=== PATIENT | female | born 1965 ===

== ENCOUNTER 2018-09-02 14:03 | Emergency (ER) | payer MEDICAID ==
[2018-09-02 14:21] VITALS: BP 135/67; PULSE 74; RESP 18; TEMP 97.7; O2SAT 99
--- NOTE | 2018-09-02 15:03 | ED PDOC ---
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 Denies any trauma, falls, or injuries. Right hand dominant PMD: Joby Segovia Past Medical History Reviewed: Historical Data, Nursing Documentation, Vital Signs Vital Signs: Last Vital Signs Temp 97.7 F 09/02/18 14:18 Pulse 74 09/02/18 14:18 Resp 18 09/02/18 14:18 BP 135/67 09/02/18 14:18 Pulse Ox 99 09/02/18 14:18 - Family History Family History: States: Unknown Family Hx - Home Medications Home Medications: Ambulatory Orders Medication Instructions Recorded Diclofenac Sodium [Voltaren] 1 gm TP TID #100 gel..gram. 09/02/18 RX: Diclofenac Sodium 50 mg PO BID #30 tablet. 09/02/18 - Allergies Allergies/Adverse Reactions: Allergies Allergy/AdvReac Type Severity Reaction Status Date / Time No Known Allergies Allergy Verified 09/02/18 14:18 Review of Systems ROS Statement: Except As Marked, All Systems Reviewed And Found Negative Musculoskeletal: Positive for: Arm Pain (right, from shoulder to elbow) Physical Exam - Reviewed Nursing Documentation Reviewed: Yes Vital Signs Reviewed: Yes - Physical Exam Appears: Positive for: No Acute Distress Skin: Positive for: Normal Color, Warm Cardiovascular/Chest: Positive for: Regular Rate, Rhythm Respiratory: Positive for: Normal Breath Sounds. Negative for: Respiratory Distress Extremity: Positive for: Other (Hawking's and Scarf's signs positive). Negative for: Normal ROM (decreased elevation, abduction, and adduction secondary to pain of right UE) Neurologic/Psych: Positive for: Alert, Oriented (x3) - ECG O2 Sat by Pulse Oximetry: 99 (RA) Pulse Ox Interpretation: Normal Medical Decision Making Medical Decision Making: Time: 1456 Initial Impression: most likely overuse injury Initial Plan: --Decadron 10mg IM --Toradol 60mg IM --Tylenol 650mg PO --Right shoulder XR 1538 Shoulder XR FINDINGS: BONES: Normal. No fracture. JOINTS: Normal. Glenohumeral and acromioclavicular joints preserved. No significant osteoarthritis. SOFT TISSUES: Small calcifications adjacent to the greater tuberosity likely secondary to calcific OTHER FINDINGS: None. IMPRESSION: Tendinitis. No evidence of acute displaced fracture nor dislocation. Findings suggest mild calcific tendinitis. 1600 Results discussed with patient using irrigation supervisor. Patient to be placed in sling, given scripts for pain medication, and advised to follow up with her PMD. ----- Scribe Attestation: Documented by Kiya Barlow, acting as a scribe for Amadou Weaver PA-C. Provider Scribe Attestation: All medical record entries made by the Scribe were at my direction and personally dictated by me. I have reviewed the chart and agree that the record accurately reflects my personal performance of the history, physical exam, medical decision making, and the department course for this patient. I have also personally directed, reviewed, and agree with the discharge instructions and disposition. Disposition - Clinical Impression Clinical Impression: Calcific shoulder tendinitis, Chronic shoulder pain Doctor Will See Patient In The: Office Counseled Patient/Family Regarding: Studies Performed, Diagnosis, Need For Followup, Rx Given - Disposition Referrals: [facility] at [place] [Outside] Disposition: Routine/Home Disposition Time: 16:21 Condition: STABLE Additional Instructions: Follow up with PCP Ortho clinic referral also provided Prescriptions: RX: Diclofenac Sodium 50 mg PO BID #30 tablet. Diclofenac Sodium [Voltaren] 1 gm TP TID #100 gel..gram. Instructions: Tendonitis, Tendonitis (DC) Forms: [employer] (Bel[place]ian), [employer] [place] (Sinhala), [facility] ED School/Work Excuse Print Language: SAMI
--- NOTE | 2018-09-02 15:07 | ED PDOC ---
Upper Extremity Pain/Injury Time Seen by Provider: 09/02/18 14:57 Chief Complaint (Nursing): Upper Extremity Problem/Injury Past Medical History Vital Signs: Last Vital Signs Temp 97.7 F 09/02/18 14:18 Pulse 74 09/02/18 14:18 Resp 18 09/02/18 14:18 BP 135/67 09/02/18 14:18 Pulse Ox 99 09/02/18 14:18 - Allergies Allergies/Adverse Reactions: Allergies Allergy/AdvReac Type Severity Reaction Status Date / Time No Known Allergies Allergy Verified 09/02/18 14:18 - ECG O2 Sat by Pulse Oximetry: 99 Disposition - Disposition
--- NOTE | 2018-09-02 15:48 | RAD ---
Date of service: 09/02/2018 PROCEDURE: Radiographs of the Right Shoulder HISTORY: r/o fx COMPARISON: No prior. FINDINGS: BONES: Normal. No fracture. JOINTS: Normal. Glenohumeral and acromioclavicular joints preserved. No significant osteoarthritis. SOFT TISSUES: Small calcifications adjacent to the greater tuberosity likely secondary to calcific OTHER FINDINGS: None. IMPRESSION: Tendinitis. No evidence of acute displaced fracture nor dislocation. Findings suggest mild calcific tendinitis.
== END 2018-09-02 16:30 | disposition home or self-care (01) ==
LOC: H.ER 14:03
DX: M25.511 Pain in right shoulder (principal); M75.31 Calcific tendinitis of right shoulder
CPT/HCPCS: 73030; 96372; 99282; J1100; J1885

== ENCOUNTER 2018-09-13 15:07 | Emergency (ER) | payer MEDICAID ==
[2018-09-13 15:15] VITALS: TEMP 97.7; O2SAT 99
--- NOTE | 2018-09-13 16:05 | ED PDOC ---
Upper Extremity Pain/Injury Time Seen by Provider: 09/13/18 15:14 Chief Complaint (Nursing): Upper Extremity Problem/Injury Chief Complaint (Provider): Upper Extremity Problem/Injury History Per: Patient History/Exam Limitations: no limitations Onset/Duration Of Symptoms: Days (x4) Current Symptoms Are (Timing): Still Present Additional Complaint(s): Patient is a 52 y/o female with a PMHx of right shoulder calcific tendonitis who presents to the ED for evaluation of recurrent right shoulder pain for the past four days. Patient was seen in the ED on 09/02/2018 for similar symptoms which was when she was diagnosed with right shoulder calcific tendonitis. Patient took Toradol, Decadron, and Tyenol with temporary improvement in pain prior to the past four days. Patient reports significant right shoulder and arm pain as well as difficulty elevating arm past shoulder. Patient also claims to have numbness in her right hand. Patient denies fever, chills, night sweats, or recent trauma to arm. Patient states she took Diclofenac last evening with minimal improvement. 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 09/02/18 Diclofenac Sodium [Voltaren] 1 gm TP TID #100 gel..gram. 09/02/18 - Allergies Allergies/Adverse Reactions: Allergies Allergy/AdvReac Type Severity Reaction Status Date / Time No Known Allergies Allergy Verified 09/13/18 15:13 Review of Systems ROS Statement: Except As Marked, All Systems Reviewed And Found Negative Constitutional: Negative for: Fever, Chills, Sweats, Weakness Musculoskeletal: Positive for: Shoulder Pain (right), Arm Pain (right) Neurological: Positive for: Numbness (in right hand) Physical Exam - Reviewed Nursing Documentation Reviewed: Yes Vital Signs Reviewed: Yes - Physical Exam Appears: Positive for: Uncomfortable Head Exam: Positive for: ATRAUMATIC, NORMAL INSPECTION, NORMOCEPHALIC Pulses-Radial (R): 2+ Extremity: Positive for: Capillary Refill (less than two seconds), Other (normal flexion and extension of right wrist). Negative for: Normal ROM (decreased ROM with flexion and abduction of right shoulder as well as decreased ROM and extension of right elbow), Deformity (ecchymosis, erythema, or swelling) Neurologic/Psych: Positive for: Alert, Oriented - ECG O2 Sat by Pulse Oximetry: 99 (RA) Pulse Ox Interpretation: Normal Medical Decision Making Medical Decision Making: Time: 1551 Plan: Decadron Inj 10 mg IM Flexeril 10 mg PO Toradol 30 mg IM Tylenol 650 mg PO Reevaluation Referral to Orthopedics Scribe Attestation: Documented by Jesus Chakraborty, acting as a scribe for Jazmín CANSECO. Provider Scribe Attestation: All medical record entries made by the Scribe were at my direction and personally dictated by me. I have reviewed the chart and agree that the record accurately reflects my personal performance of the history, physical exam, medical decision making, and the department course for this patient. I have also personally directed, reviewed, and agree with the discharge instructions and disposition. Disposition - Disposition
[2018-09-13 17:20] VITALS: BP 116/63; PULSE 59; RESP 19
== END 2018-09-13 17:41 | disposition home or self-care (01) ==
LOC: H.ER 15:07
DX: M75.31 Calcific tendinitis of right shoulder (principal)
CPT/HCPCS: 81025; 96372; 99285; J1100; J1885